=== PATIENT | female | born 1980 | race Caucasian/White ===

== ENCOUNTER 2022-12-10 14:59 | Emergency (ER) | payer OTHER ==
[~2022-12-10] VITALS: Ht 167.6 cm; Wt 105.7 kg
[2022-12-10 15:13] VITALS: BP 130/89
--- NOTE | 2022-12-10 15:30 | NUR ---
USMAN VASQUEZ TO ER CHAIR
--- NOTE | 2022-12-10 16:05 | NUR ---
Patient being evaluated by physician
[2022-12-10] MEDS ORDERED: CYCLOBENZAPRINE 10 MG TAB PO ONE (16:10)
[2022-12-10] MEDS ORDERED: ACETAMINOPHEN EXTRA STRENGTH 500 MG TAB PO ONE (16:10)
[2022-12-10] MEDS ORDERED: KETOROLAC 60 MG/2 ML VIAL IM ONE (16:10)
[2022-12-10] MEDS ORDERED: CYCL-711 PO (16:15)
[2022-12-10] MEDS ORDERED: IBUP-2213 PO (16:15)
[2022-12-10] MEDS ORDERED: ACET-10509 PO (16:15)
--- NOTE | 2022-12-10 16:29 | NUR ---
Patient discharged with v/s stable. Written and verbal after care instructions given. Patient alert, oriented and verbalized understanding of instructions. Ambulatory with steady gait. All questions addressed prior to discharge. ID band removed. Patient advised to follow up with PMD. Rx of Tylenol, Flexeril and Ibuprofen given. Opportunity to ask questions provided and answered.
--- NOTE | 2022-12-10 16:29 | NUR ---
The patient's care was reviewed and supervised by Kevin Steen RN.
== END 2022-12-10 16:29 | disposition home or self-care (01) ==
LOC: MED 14:59
DX: M79.601 Pain in right arm (principal); M79.661 Pain in right lower leg; M54.2 Cervicalgia; V49.88XA Car occupant (driver) (passenger) injured in other specified transport accidents, initial encounter; Y93.89 Activity, other specified; Y92.89 Other specified places as the place of occurrence of the external cause; Y99.8 Other external cause status
CPT/HCPCS: 99283

== ENCOUNTER 2022-12-19 12:36 | Emergency (ER) | payer OTHER ==
[~2022-12-19] VITALS: Ht 157 cm; Wt 107.7 kg
[~2022-12-19 12:36] MED LIST: ACET-10509 PO; CYCL-711 PO; IBUP-2213 PO
[2022-12-19 12:54] VITALS: BP 145/90
[2022-12-19] MEDS ORDERED: KETOROLAC 30 MG/ML VIAL IM ONE (13:30)
[2022-12-19] MEDS ORDERED: LID5T TP (14:23)
[2022-12-19] MEDS ORDERED: CYCL-711 PO (14:23)
[2022-12-19 14:44] VITALS: BP 145/90
== END 2022-12-19 14:44 | disposition home or self-care (01) ==
LOC: MED 12:36
DX: S16.1XXA Strain of muscle, fascia and tendon at neck level, initial encounter (principal); S60.211A Contusion of right wrist, initial encounter; S80.11XA Contusion of right lower leg, initial encounter; W22.8XXA Striking against or struck by other objects, initial encounter; Y93.89 Activity, other specified; Y92.89 Other specified places as the place of occurrence of the external cause; Y99.8 Other external cause status
CPT/HCPCS: 73090; 73110; 81025; 96372; 99284; J1885